=== PATIENT | female | born 1950 | race Caucasian/White ===

== ENCOUNTER 2019-02-17 22:15 | Observation (INO) ==
--- NOTE | 2019-02-17 22:55 | PROVIDER DOCUMENTATION ---
This chart was entered by Kim Mar Scribe, acting as scribe for Dara Martínez CRNP. HPI-General Adult - General Source: patient, family - History of Present Illness -Gen Adult Nature of Presenting Problems: 68 yof presents w/ at bedside w/cc generalized weakness. sts that pt at 0900 was not walking or talking as normal (has shuffling gait,) but was able to drive at 1500 and pulled over by pd for swerving. pt is talking normally at beside and denies any other complaints aside from weakness. denies falls and loc. pt mother felt back and pt felt feverish. pt has hx of htn, dm, bipolar. NO ONE IS THE ROOM SEEMS TO PROVIDE AN ACCURATE HX ON THE PATIENT. Location of Pain/Injury: reports: generalized (weakness) Pain Radiation: reports: no radiation Quality of Pain: reports: other (weak) Severity: reports: mild Onset/Duration: reports: this morning Timing: reports: improving (pt speaking normally), other (pt gait still off balance.) Modifying Factors: improves with: nothing <Dara Martínez - Last Filed: 02/17/19 23:36> <Niki Mcmanus - Last Filed: 02/18/19 00:58> - General Chief Complaint: Weakness Stated Complaint: CAN'T WALK/TALK, WEAK Time Seen by Provider: 02/17/19 22:27 Allergies/Adverse Reactions: Patient Allergies Allergy/AdvReac Type Severity Reaction Status Date / Time losartan Allergy Mild Unknown Verified 05/10/18 01:14 codeine Allergy NAUSEA/VOMI Verified 05/10/18 01:14 TING olanzapine [From Zyprexa] Allergy ANAPHYLAXIS Verified 05/10/18 01:14 Penicillins Allergy ANAPHYLAXIS Verified 05/10/18 01:14 quetiapine [From Seroquel] Allergy ANAPHYLAXIS Verified 05/10/18 01:14 prednisone AdvReac Mild Unknown Verified 05/10/18 01:14 dexamethasone [From Decadron] AdvReac Unknown Verified 05/10/18 01:14 Home Medications: Home Medication List Medication Instructions Recorded Confirmed Last Taken Type Metformin [Glucophage] 500 mg PO DAILY 04/15/12 05/10/18 04/12/18 21:30 History Estrogen Vag Cream [Premarin Vag 1 applic VAG DIRECTED 04/14/18 05/10/18 04/05/18 21:30 History Cream] Hydroxyzine [Atarax] 25 mg PO DAILY 04/14/18 05/10/18 04/12/18 21:30 History Pantoprazole [Protonix] 40 mg PO DAILY 04/14/18 05/10/18 04/12/18 21:30 History Psyllium [Metamucil Powder Packet] 1 each PO DAILY 04/14/18 05/10/18 04/13/18 09:00 History Trazodone [Desyrel] 50 mg PO QHS #30 tab 04/20/18 05/10/18 Unknown Rx Albuterol Sulfate [Proair Hfa] 8.5 gm IH Q4-6H PRN PRN #1 04/22/18 05/10/18 Unknown Rx [email or web address] Melatonin 15 mg PO QHS 05/04/18 05/10/18 Unknown History Sennosides/Docusate Sodium [Stool 1 each PO BID 05/04/18 05/10/18 Unknown History Softener-Laxative Tablet] Mirtazapine [Remeron] 7.5 mg PO QHS #90 tab 05/07/18 05/10/18 Unknown Rx Trazodone [Desyrel] 100 mg PO QHS #90 tab 05/07/18 05/10/18 Unknown Rx Review of Systems - Adult - REVIEW OF SYSTEMS - ADULT Constitutional: reports: no symptoms reported. denies: chills, fatique, night sweats Eyes: reports: no symptoms reported Ears, Nose, Mouth & Throat: reports: no symptoms reported Cardiovascular: reports: no symptoms reported Respiratory: reports: no symptoms reported Gastrointestinal: reports: no symptoms reported Genitourinary: reports: no symptoms reported Musculoskeletal: reports: see HPI, muscle weakness (generalized), other (unable to walk, unable to talk. pt is able to speak in er.). denies: bone pain, back pain, joint pain, joint swelling, muscle aches Integumentary: reports: no symptoms reported Neurological: reports: no symptoms reported. denies: dizziness/vertigo, headache/migraines, seizure, syncope, tremors Psychiatric: reports: no symptoms reported Endocrine: reports: no symptoms reported Hematologic/Lymphatic: reports: no symptoms reported Allergic/Immunologic: reports: no symptoms reported All Other Systems: Reviewed and Negative <Dara Martínez - Last Filed: 02/17/19 23:36> Past History - Adult - PAST MEDICAL HISTORY-ADULT Review of Records: reports: Old Records Reviewed, Nursing Assessment Review, Medications Reviewed, Social history reviewed & non-contributory. Major Childhood Illnesses: reports: denies history Cardiovascular: reports: HTN, hyperlipidemia Respiratory: reports: denies history Gastrointestinal: reports: denies history Obstetrical/Gynecological: reports: denies history Genitourinary: reports: denies history Musculoskeletal: reports: denies history Neurological: reports: CVA, TIA Psychiatric: reports: bipolar Endocrine/Immune: reports: Diabetes Other Conditions: reports: denies history - PRIOR SURGERIES/PROCEDURES Surgical/Procedure History: reports: appendectomy, hysterectomy, tonsillectomy, joint replacement - IMMUNIZATION STATUS Childhood Immunizations: See Nurse Assessment Flu Vaccine: See Nurse Assessment - FAMILY HISTORY Family History: reviewed, not pertinent - SOCIAL HISTORY Smoking: non-smoker Substance Use: none/never <Dara Martínez - Last Filed: 02/17/19 23:36> Physical Exam-General - PHYSICAL EXAM-ADULT Initial Vital Signs Reviewed: Yes - CONSTITUTIONAL General Appearance: appears well, alert, no apparent distress. negative: lethargic, slow to respond, obtunded - EYES Eyes: PERRL/EOMI, pink conjunctivae - HEAD, EARS, NOSE, MOUTH & THROAT HENMT: normocephalic/atraumatic, moist mucous membranes, normal ENT inspection - NECK Neck: non-tender, full range of motion, supple, normal inspection - RESPIRATORY Respiratory: chest non-tender, lungs clear, normal breath sounds - CARDIOVASCULAR Cardiovascular: normal peripheral pulses, regular rate, rhythm - GASTROINTESTINAL (ABDOMEN) Abdominal Exam: normal bowel sounds, non tender, soft - LYMPHATIC Lymphatic: no adenopathy - MUSCULOSKELETAL Back Exam: normal inspection, no CVA tenderness, no vertebral tenderness Extremity: normal range of motion, non-tender, normal capillary refill, other (bilat leg weakness). negative: normal gait (off balance), normal inspection, deformity, erythema, inflammation, slow capillary refill, swelling, tenderness - SKIN Integumentary: normal color, normal turgor, warm/dry - NEUROLOGIC Neurologic: equipment or machinery cleaner II-XII nml as tested, grossly normal, no motor/sensory deficits - PSYCHIATRIC Psych/Mental Status: normal mood/affect, normal thought content, normal thought process, oriented x 3 <Dara Martínez - Last Filed: 02/17/19 23:36> Progress - PLAN OF CARE/RESULTS Progress/Plan/Lab Results: Vital Signs - 8 hr 02/17/19 22:19 Temperature 98.6 F Pulse Rate 117 H Respiratory Rate 16 Blood Pressure 143/84 O2 Sat by Pulse Oximetry 95 Result Diagrams: 02/17/19 22:52 - CHANGE OF SHIFT REPORT (ED Provider) 1 Report Given and Care Transferred to:: DR. MCMANUS Items Pending: Labs, CT/MRI Results <Dara Martínez - Last Filed: 02/17/19 23:36> - PLAN OF CARE/RESULTS Progress/Plan/Lab Results: Vital Signs - 8 hr 02/17/19 22:19 02/17/19 23:57 Temperature 98.6 F Pulse Rate 117 H Pulse Rate [Sitting] 102 H Pulse Rate [Standing] 102 H Pulse Rate [Supine] 93 H Respiratory Rate 16 Blood Pressure 143/84 Blood Pressure [Sitting] 152/82 Blood Pressure [Standing] 152/82 Blood Pressure [Supine] 163/93 O2 Sat by Pulse Oximetry 95 Laboratory Results - last 24 hr 02/17/19 02/17/19 02/17/19 21:37 21:37 22:52 WBC RBC Hgb Hct MCV MCH MCHC RDW Std Deviation Plt Count MPV Immature Gran % (Auto) Neut % (Auto) Lymph % (Auto) [place] % (Auto) Eos % (Auto) Baso % (Auto) Immature Gran # (Auto) Neut # (Auto) Lymph # (Auto) [place] # (Auto) Eos # (Auto) Baso # (Auto) PT 13.6 INR 1.03 PTT (Actin FS) 29.1 Sodium Potassium Chloride Carbon Dioxide Anion Gap BUN Creatinine Estimated GFR/1.73 m2 BUN/Creatinine Ratio Glucose POC Glucose Calculated Osmolality Calcium Total Bilirubin AST ALT Alkaline Phosphatase Creatine Kinase Troponin T Total Protein Albumin Globulin Albumin/Globulin Ratio Urine Source CATH Urine Color YELLOW Urine Turbidity CLEAR Urine pH 7.0 Ur Specific [place] 1.013 Urine Protein NEGATIVE Ur Glucose (Stick) NEGATIVE Ur Ketones (Stick) TRACE A Urine Blood NEGATIVE Urine Nitrite NEGATIVE Urine Bilirubin NEGATIVE Urobilinogen Dipstick 3 A Urine Leukocytes NEGATIVE Urine WBC (Auto) <10 Urine RBC (Auto) <10 U Epithel Cells (Auto) <10 Urine Bacteria (Auto) NEGATIVE Urine Opiates Screen NONE DETECTED Ur Oxycodone Screen NONE DETECTED Ur Methadone, Qual NONE DETECTED Ur Barbiturates Screen NONE DETECTED Ur Phencyclidine Scrn NONE DETECTED Ur Amphetamines Screen NONE DETECTED U Benzodiazepines Scrn NONE DETECTED Urine Cocaine Screen NONE DETECTED U Cannabinoids Screen NONE DETECTED 02/17/19 02/17/19 02/17/19 22:52 22:52 22:52 WBC 5.86 RBC 3.37 L Hgb 10.9 L Hct 32.6 L MCV 96.7 MCH 32.3 H MCHC 33.4 RDW Std Deviation 12.8 Plt Count 79 L MPV 9.5 Immature Gran % (Auto) 0.0 Neut % (Auto) 56.3 Lymph % (Auto) 25.9 [place] % (Auto) 17.4 H Eos % (Auto) 0.2 Baso % (Auto) 0.2 Immature Gran # (Auto) 0.00 Neut # (Auto) 3.30 Lymph # (Auto) 1.52 [place] # (Auto) 1.02 H Eos # (Auto) 0.01 Baso # (Auto) 0.01 PT INR PTT (Actin FS) Sodium Potassium Chloride Carbon Dioxide Anion Gap BUN Creatinine Estimated GFR/1.73 m2 BUN/Creatinine Ratio Glucose POC Glucose Calculated Osmolality Calcium Total Bilirubin AST ALT Alkaline Phosphatase Creatine Kinase 31 Troponin T < 0.010 Total Protein Albumin Globulin Albumin/Globulin Ratio Urine Source Urine Color Urine Turbidity Urine pH Ur Specific [place] Urine Protein Ur Glucose (Stick) Ur Ketones (Stick) Urine Blood Urine Nitrite Urine Bilirubin Urobilinogen Dipstick Urine Leukocytes Urine WBC (Auto) Urine RBC (Auto) U Epithel Cells (Auto) Urine Bacteria (Auto) Urine Opiates Screen Ur Oxycodone Screen Ur Methadone, Qual Ur Barbiturates Screen Ur Phencyclidine Scrn Ur Amphetamines Screen U Benzodiazepines Scrn Urine Cocaine Screen U Cannabinoids Screen 02/17/19 02/17/19 22:52 23:19 WBC RBC Hgb Hct MCV MCH MCHC RDW Std Deviation Plt Count MPV Immature Gran % (Auto) Neut % (Auto) Lymph % (Auto) [place] % (Auto) Eos % (Auto) Baso % (Auto) Immature Gran # (Auto) Neut # (Auto) Lymph # (Auto) [place] # (Auto) Eos # (Auto) Baso # (Auto) PT INR PTT (Actin FS) Sodium 139 Potassium 4.5 Chloride 101 Carbon Dioxide 25 Anion Gap 13 BUN 26 H Creatinine 1.4 H Estimated GFR/1.73 m2 38 BUN/Creatinine Ratio 19 Glucose 110 H POC Glucose 100 Calculated Osmolality 283 Calcium 8.5 L Total Bilirubin 0.76 AST 21 ALT 6 L Alkaline Phosphatase 62 Creatine Kinase Troponin T Total Protein 6.3 Albumin 3.6 Globulin 2.7 Albumin/Globulin Ratio 1.3 Urine Source Urine Color Urine Turbidity Urine pH Ur Specific [place] Urine Protein Ur Glucose (Stick) Ur Ketones (Stick) Urine Blood Urine Nitrite Urine Bilirubin Urobilinogen Dipstick Urine Leukocytes Urine WBC (Auto) Urine RBC (Auto) U Epithel Cells (Auto) Urine Bacteria (Auto) Urine Opiates Screen Ur Oxycodone Screen Ur Methadone, Qual Ur Barbiturates Screen Ur Phencyclidine Scrn Ur Amphetamines Screen U Benzodiazepines Scrn Urine Cocaine Screen U Cannabinoids Screen Orders Category Date Time Status FSBS [Finger Stick Blood Sugar (ED)] DIRECTED Care 02/17/19 22:35 Active Orthostatic Vital Signs NOW Care 02/17/19 22:35 Active Saline Loc NOW Care 02/17/19 22:35 Active CHEST-PORTABLE [RAD] Stat Exams 02/17/19 23:[address] HEAD W/O CONTRAST [CT] Stat Exams 02/17/19 22:36 Taken CBC WITH ELECTRONIC DIFF [HEME] Stat Lab 02/17/19 22:52 Completed CK PROFILE [SP CHEM] Stat Lab 02/17/19 22:52 Completed CMP [COMPREHENSIVE METABOLIC PANEL] [CHEM] Stat Lab 02/17/19 22:52 Completed PROTIME WITH INR [COAG] Stat Lab 02/17/19 22:52 Completed PTT [COAG] Stat Lab 02/17/19 22:52 Completed TROPONIN T Stat Lab 02/17/19 22:52 Completed UA NIMS W/REFLEX CULT [URINALYSIS] Stat Lab 02/17/19 21:37 Completed URINE DRUG SCREEN Stat Lab 02/17/19 21:37 Completed EKG [EKG] Stat Ther 02/17/19 22:35 Ordered Result Diagrams: 02/17/19 22:52 02/17/19 22:52 - REASSESSMENT Reassessment #1 Status: improving (Pt signed out to me by Ольга Martínez MINIATURE SET CONSTRUCTOR pending labs and CT results. Labs and CT unremarkable. As unable to ambulate due to weakness will admit for further evaluation and treatment. Discussed case with Dr. Andersen, hospitalist, who will see and admit pt.) - CT/MRI 1 CT Study: Head Impression: Normal (Per radiologist read: "no acute intracranial disease") <Niki Mcmanus - Last Filed: 02/18/19 00:58> Departure <Dara Martínez - Last Filed: 02/17/19 23:36> - Departure Date of Disposition Decision: 02/18/19 Time of Disposition Decision: 00:57 Certified Medical Emergency: Emergent - Critical Care Note This patient required my direct & personal management of CC.: No <Niki Mcmanus - Last Filed: 02/18/19 00:58> - Departure DIAGNOSIS: Weakness Disposition: ADMITTED INPATIENT 09 Condition: Fair Attestation - Physician/ CHACORTA Attestation Patient care was provided by Advanced Practice Provider:: Yes Advanced Practice Provider:: Dara Martínez Advanced Practice Provider documentation review:: The Mid-level provider documentation, treatment plan and medical decision making was reviewed by the physician who agrees with all treatment and medical decision making by the P. The physician spent face to face time with patient:: No Advanced Practice Provider documentation review:: Supervising physician onsite and consulted in the evaluation and care of this patient. The physician did not have a face to face encounter with the patient. <Dara Martínez - Last Filed: 02/17/19 23:36> This chart was documented by the indicated scribe, (Kim Mar Scribe) and accurately reflects the services I performed and decisions made by me, Dara Martínez CRNP, as attested by the provider's signature.
[2019-02-17 23:17] LABS: BASO# 0.01 X1000 (0.0-0.2); BASO% 0.2 % (0.0-0.8); EOS# 0.01 X1000 (0.0-0.7); EOS% 0.2 % (0.0-10.0); HEMATOCRIT 32.6 % (37.0-47.0); HEMOGLOBIN 10.9 g/dL (12.0-16.0); LYMPH# 1.52 X1000 (1.2-3.4); LYMPH% 25.9 % (20.5-51.1); MCH 32.3 PG (27-31); MCHC 33.4 g/dL (33-37); MCV 96.7 FL (81-99); MONO# 1.02 X1000 (0.11-0.59); MONO% 17.4 % (1.7-9.3); MPV 9.5 FL (7.4-10.4); NEUT% 56.3 % (42.2-75.2); PLT 79 X1000 (130-400); RBC 3.37 XMIL (4.2-5.4); RDW 12.8 % (11.5-14.5); WBC 5.86 X1000 (4.8-10.8)
[2019-02-17 23:27] LABS: URINE SOURCE CATH
[2019-02-17 23:27] LABS: INR 1.03; PROTIME 13.6 Seconds (11.0-16.0)
[2019-02-17 23:28] LABS: PTT 29.1 Seconds (22.3-41.8)
[2019-02-17 23:31] LABS: BILIRUBIN URINE NEGATIVE (NEGATIVE); BLOOD URINE NEGATIVE (NEGATIVE); COLOR YELLOW; GLUCOSE URINE NEGATIVE (NEGATIVE); KETONE URINE TRACE mg/dL (NEGATIVE); LEUKOCYTES URINE NEGATIVE (NEGATIVE); NITRITE URINE NEGATIVE (NEGATIVE); PROTEIN URINE NEGATIVE (NEGATIVE); SP GRAVITY URINE 1.013; TURBIDITY URINE CLEAR (CLEAR); UR EPITHELIAL CELLS <10 /HPF (<10); URINE BACTERIA NEGATIVE /HPF; URINE RBC <10 /HPF (<10); URINE WBC <10 /HPF (<10); UROBILINOGEN URINE 3 mg/dL (NORMAL)
[2019-02-18 00:24] LABS: ALB/GLOB RATIO 1.3; ALBUMIN 3.6 g/dL (3.5-5.0); CALCIUM 8.5 mg/dL (8.8-10.2); CREATININE 1.4 mg/dL (0.5-0.9); POTASSIUM 4.5 mmol/L (3.5-5.1); TOTAL BILIRUBIN 0.76 mg/dL (0.20-1.00); TOTAL PROTEIN 6.3 g/dL (6.3-8.3)
[2019-02-18 00:43] LABS: UR AMPHETAMINES QUAL NONE DETECTED (NONE DETECT); UR BARBITUATES QUAL NONE DETECTED (NONE DETECT); UR BENZODIAZEPIN QUAL NONE DETECTED (NONE DETECT); UR CANNABINOIDS QUAL NONE DETECTED (NONE DETECT); UR COCAINE QUAL NONE DETECTED (NONE DETECT); UR METHADONE QUAL NONE DETECTED (NONE DETECT); UR OPIATES QUAL NONE DETECTED (NONE DETECT); UR OXYCODONE QUAL NONE DETECTED (NONE DETECT); UR PCP QUAL NONE DETECTED (NONE DETECT)
[2019-02-18 02:08] LABS: MAGNESIUM 1.7 mg/dL (1.5-2.7)
[2019-02-18 02:30] LABS: TSH 2.49 uIUmL (0.27-4.20)
--- NOTE | 2019-02-18 02:59 | HISTORY AND PHYSICAL ---
PRIMARY CARE PHYSICIAN: Dr. Cheung. REASON FOR ADMISSION: Worsening generalized weakness and cognitive dysfunction over the last 1 month. HISTORY OF PRESENT ILLNESS: Ms. Anabell Kunz is a 68-year-old woman with past medical history of mood disorder, unspecified, type 2 diabetes, hypertension, prior CVA, and history of angioedema secondary ARB's. She comes in today because her says that she has become very unstable on her feet, and over the course of the last 2 days had to be close by her side to make sure she does not fall and hurt herself. Today, she was stopped by the police department because she was driving off the road. Apparently, her spouse says that her memory, both short-term and long-term have been failing her. The patient is not a very good historian, and she seems to have some mild degree of speech apraxia. History was obtained primarily from the spouse and the mother, who are both at bedside. The patient denies any pain, any shortness of breath, except for pain in the suprapubic area. No diarrhea, nausea, vomiting, no bleeding from any orifice. No focal weakness, numbness, tingling, or headaches. No visual disturbances. No cardiorespiratory complaints. REVIEW OF SYSTEMS: Limited due to patient's poor cognitive function. ALLERGIES: She is allergic to ARB's, codeine, penicillin, atypical antipsychotics, Decadron, prednisone, Trileptal. FAMILY HISTORY: No obtained, but the mother did say nobody has had prior neurological problems. PAST SURGICAL HISTORY: Hysterectomy, tonsillectomy, joint replacement, right total knee replacement, left knee arthroscopic surgery. SOCIAL HISTORY: . Does not smoke, drink, or use drugs. Sister did have bipolar disorder. LABORATORY DATA: White count 5000, hemoglobin and hematocrit 10 and 32, platelets 79,000. Normal differential. BUN is 26, creatinine 1.4. Glucose 110, calcium 8.5, albumin 2.6. Troponin is negative, CK is normal. UDS is negative. Urinalysis clean. Chest film and head CT, no gross acute processes noted. PHYSICAL EXAMINATION: VITAL SIGNS: Blood pressure 142/84, heart rate 117, respirations 16, temperature is 98.6 degrees, saturation 95% on room air. No evidence of orthostatic changes noted. GENERAL: She is an elderly woman who is alert and oriented only to person. She has a flat affect and somewhat apathetic mood. HEENT: Head is normocephalic, atraumatic. Eyes, only movement in the horizontal plane. I do not see any upward or downward movements. No nystagmus. Pale conjunctivae. Oral cavity with no exudates or erythema. No central cyanosis. There is a mild mouth tremor noted. Myerson sinus is equivocal. NECK: Supple. No JVD or carotid bruit. No thyromegaly. CHEST: Clear to auscultation. Good breath lung kim. CARDIOVASCULAR: First and sounds heard. No gallops, murmurs, rubs. Rhythm is regular. ABDOMEN: Full, soft, with mild tenderness. No rebound or guarding. Bowel sounds normal. RECTAL: Deferred at this time. EXTREMITIES: Good distal pulse volumes, regular, symmetrical. No edema, clubbing, or cyanosis. NEUROLOGICAL: No gross focal deficits. No asterixis or tremors. SKIN: Intact. Good turgor. There is no breakdown, lesion, or erythema. MUSCULOSKELETAL: Patient has mild hypertonicity of extremities. IMPRESSION: 1. Acute kidney injury. Probably secondary to poor oral intake. 2. Hypertension. 3. 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 Supranuclear palsy, cannot rule out a neuromuscular condition, ? Myasthenia. 4. Anemia of chronic inflammation. 5. Type 2 diabetes. 6. Prior cerebrovascular accident. 7. Mood disorder, not otherwise specified. PLAN: Patient will be hydrated. MRI of the brain will be done to rule out alternative diagnosis from a possible Parkinson plus syndrome, and to rule out a possible recurrent cerebrovascular accident. Consult Neurology to see patient. We will avoid using any possible atypical or typical neurolytic agent in light of her symptoms. Check BMP in the morning. Anemia workup was ordered, and also extensive nutritional/trace element workup was also ordered. The patient is apparently very weak, recommend physical therapy. Possible placement due to fall risk of this patient. cc: MD Dr. Jonatan Vogel
[2019-02-18] MEDS ORDERED: NS 1,000 ML IV SCH (03:33)
[2019-02-18] MEDS ORDERED: TYLENOL PO PRN (03:33)
[2019-02-18] MEDS ORDERED: ZOFRAN IV PRN (03:33)
--- NOTE | 2019-02-18 04:32 | EKG Report ---
Test Performed on : 02/17/2019 11:29:47 PM Test Reason : WEAKNESS Blood Pressure : / mmHG Vent. Rate : 098 BPM Atrial Rate : 098 BPM P-R Int : 166 ms QRS Dur : 110 ms QT Int : 382 ms P-R-T Axes : 056 -34 068 degrees QTc Int : 487 ms Sinus rhythm. with marked sinus arrhythmia. with frequent ventricular-paced complexes and with occasi onal premature ventricular complexes. Left axis deviation Low voltage QRS Incomplete right bundle branch block Nonspecific ST and T wave abnormality Abnormal ECG When compared with ECG of 10-MAY-2018 04:26, Electronic ventricular pacemaker has replaced Sinus rhythm. Unconfirmed Result
[2019-02-18] MEDS: LOVENOX SUBQ SCH (04:33)
[2019-02-18] MEDS: HUMALOG SUBQ SCH ×4 (07:04→20:51)
--- NOTE | 2019-02-18 09:07 | Diag Imaging Result Doc PS360 ---
EXAM: CHEST-PORTABLE INDICATION: weakness TECHNIQUE: One view COMPARISON: 05/10/2018 FINDINGS: Inspiration is suboptimal. The lungs are grossly clear. There is no discrete pleural fluid collection or pneumothorax. The cardiomediastinal silhouette and central vasculature are grossly unremarkable. IMPRESSION: Somewhat low lung volumes but no definite acute pathology, otherwise. Electronically signed by Ruddy Mar 02/18/2019 9:05 AM
[2019-02-18] MEDS ORDERED: VITAMIN D PO SCH (10:00)
--- NOTE | 2019-02-18 10:20 | Diag Imaging Result Doc PS360 ---
EXAM: CT HEAD W/O CONTRAST INDICATION: AMS TECHNIQUE: This exam was performed using automated exposure control, adjustment of mA or kV according to patient size, and/or use of iterative reconstruction technique. COMPARISON: 04/14/2018 FINDINGS: There is no definite acute infarct given the limited sensitivity of CT versus MRI. There is no discrete intracranial mass, mass effect, or intracranial hemorrhage. The surrounding soft tissues and bony structures are essentially unremarkable. IMPRESSION: No evidence of acute intracranial pathology. Electronically signed by Ruddy Mar 02/18/2019 10:18 AM
--- NOTE | 2019-02-18 10:28 | PROGRESS NOTE ---
DATE: 02/18/2019 SUBJECTIVE: Patient admitted during the night last night to Dr. Cheung. She has had ataxia and generalized weakness, cognitive dysfunction over the last month. This morning she is alert and she is slow of speech, but is coherent and answers questions appropriately. Moves all extremities well. OBJECTIVE: Afebrile. Pulse 88, respirations 16, blood pressure 154/73, O2 saturation room air 98%.CV: RRR without murmur. Lungs: Clear. Abdomen: Soft, nontender, nondistended. No mass. No hepatosplenomegaly. Extremities: No calf tenderness, cords or edema. Neurologic: Nonfocal. She moves all extremities well. Slow of speech. Flat affect noted. LABORATORY DATA: Reviewed from admission mainly showing a slightly low hemoglobin 10.9, BUN and creatinine were abnormal at 26 and 1.4. Urine drug screen negative. ASSESSMENT: 1. Mental status change with slowness of speech and some ataxia. 2. History of bipolar disorder, on chronic Depakote. 3. Prior history of cerebrovascular accident. 4. Type 2 diabetes mellitus. 5. Hypertension. 6. Hypercholesterolemia. 7. Anemia of chronic disease. 8. Mild prerenal azotemia. PLAN: 1. Continue low-dose IV fluids. 2. MRI of brain has been ordered by the hospitalist. By report CT of the head was unremarkable. 3. We will check a valproic acid level as we were concerned she could have Depakote toxicity. 4. Will follow up her CBC and CMP in the morning. 5. She ate fairly well this morning. We will give her sliding scale insulin with serial Accu- Cheks as required. 6. Resume most for home medications except will hold Remeron currently. 7. Several vitamin levels have been obtained. We will follow those up as well when they come back. Keep her at bedrest except up with assistance only. cc: MD Dru Trna MD
[2019-02-18] MEDS: NS 1,000 ML IV SCH ×2 (12:12→21:16)
[2019-02-18] MEDS: BUSPAR PO SCH (20:49)
[2019-02-18] MEDS: NEURONTIN PO SCH (20:49)
[2019-02-19] MEDS: LOVENOX SUBQ SCH (02:34)
[2019-02-19] MEDS: NS 1,000 ML IV SCH ×2 (06:28→17:26)
[2019-02-19] MEDS: HUMALOG SUBQ SCH ×4 (06:29→21:08)
[2019-02-19] MEDS: BUSPAR PO SCH ×2 (08:12→21:06)
[2019-02-19] MEDS: CLARITIN PO SCH (08:12)
[2019-02-19 08:19] LABS: BASO# 0.01 X1000 (0.0-0.2); BASO% 0.2 % (0.0-0.8); EOS# 0.03 X1000 (0.0-0.7); EOS% 0.6 % (0.0-10.0); HEMATOCRIT 30.3 % (37.0-47.0); HEMOGLOBIN 9.9 g/dL (12.0-16.0); LYMPH# 1.96 X1000 (1.2-3.4); LYMPH% 41.5 % (20.5-51.1); MCH 31.5 PG (27-31); MCHC 32.7 g/dL (33-37); MCV 96.5 FL (81-99); MONO# 0.62 X1000 (0.11-0.59); MONO% 13.1 % (1.7-9.3); MPV 9.2 FL (7.4-10.4); NEUT% 44.6 % (42.2-75.2); PLT 89 X1000 (130-400); RBC 3.14 XMIL (4.2-5.4); RDW 12.5 % (11.5-14.5); WBC 4.72 X1000 (4.8-10.8)
[2019-02-19 08:34] LABS: CALCIUM 8.1 mg/dL (8.8-10.2); CREATININE 1.1 mg/dL (0.5-0.9); POTASSIUM 3.8 mmol/L (3.5-5.1)
[2019-02-19] MEDS: DEPAKOTE ER PO SCH (08:47)
[2019-02-19] MEDS: ATIVAN PO SCH (10:28)
--- NOTE | 2019-02-19 12:59 | Diag Imaging Result Doc PS360 ---
EXAM: MRI BRAIN W/WO CONTRAST 02/18/2019 HISTORY: neurodegenerative disease TECHNIQUE: T1 sagittal, axial and post gadolinium-enhanced axial with coronal reformation, axial T2, FLAIR, DWI and coronal gradient echo. COMMENT: There is mild generalized cerebral atrophy. There is no evidence of mass effect, bleed, or abnormal extra-axial fluid collection. There is no evidence of restricted diffusion. There is no evidence of abnormal gadolinium enhancement. No previous MRI studies are available for comparison. IMPRESSION: No evidence of acute intracranial disease. Electronically signed by Barney Lezama 02/19/2019 12:57 PM
[2019-02-19] MEDS: NEURONTIN PO SCH (21:06)
[2019-02-20] MEDS: NS 1,000 ML IV SCH (01:38)
[2019-02-20] MEDS: LOVENOX SUBQ SCH (03:19)
[2019-02-20] MEDS: HUMALOG SUBQ SCH (06:01)
--- NOTE | 2019-02-20 07:26 | PROGRESS NOTE ---
DATE: 02/19/2019 SUBJECTIVE: A 68-year-old, white female who was admitted to the hospital on 02/17/2019 with worsening of generalized weakness, cognitive dysfunction over the last 1 month. Patient has a history of depression, under the care of a psychiatrist. The interval history was reviewed. PAST MEDICAL HISTORY: Reviewed. PAST SURGICAL HISTORY: Reviewed. MEDICINES: Reviewed. ALLERGIES: Reviewed. Today, the patient is doing much better as per the . Going for MRI. PHYSICAL EXAMINATION: Temperature is 98 degrees, pulse 63. Vitals are stable. HEENT Examination: Within normal limits. Neck is supple. Chest is clear. Heart sounds are regular. Belly is soft and nontender. No obvious deficits. INVESTIGATIONS: White cell count 4.7, hematocrit 30, platelets 89,000. Sodium 143, potassium 3.8, chloride 110, BUN 21, creatinine 1.1, glucose 219. Urinalysis is clear. Valproic acid 59. CT of head was negative. Brain MRI, no evidence of acute intracranial disease. EKG, normal sinus and incomplete right bundle. ASSESSMENT AND PLAN: 1. Altered mental status, is getting better. No neurological deficits. 2. Thrombocytopenia, probably drug-induced. Depakote levels were normal. 3. Extremely fatigued and weakness. Follow up on B1, B2, aldolase, B6, and acetylcholine receptor antibody. 4. Deep venous thrombosis prophylaxis with Lovenox. 5. Depression, bipolar, on Depakote and BuSpar. 6. Chronic neuropathy pain, on Neurontin. 7. Vitamin D deficiency, on replacement therapy and intravenous fluids. 8. Hyperlipidemia, on Lipitor, was on hold. 9. Chronic insomnia, on melatonin. 10. Type 2 diabetes, on metformin. Dr. Flores held the risperidone. is better. We will check the labs in the morning and follow up on the pending results. 11. Out of the bed with physical therapy. LEVEL OF DOCUMENTATION: 35 minutes. cc: Dru Cheung MD MTDD
[2019-02-20 08:01] VITALS: BP 143/67
[2019-02-20 08:11] LABS: BASO# 0.02 X1000 (0.0-0.2); BASO% 0.4 % (0.0-0.8); EOS# 0.09 X1000 (0.0-0.7); EOS% 1.6 % (0.0-10.0); HEMATOCRIT 29.9 % (37.0-47.0); HEMOGLOBIN 9.8 g/dL (12.0-16.0); LYMPH% 36.4 % (20.5-51.1); MCH 31.6 PG (27-31); MCHC 32.8 g/dL (33-37); MCV 96.5 FL (81-99); MONO# 0.75 X1000 (0.11-0.59); MONO% 13.7 % (1.7-9.3); MPV 9.4 FL (7.4-10.4); NEUT# 2.63 X1000 (1.4-6.5); NEUT% 47.9 % (42.2-75.2); PLT 100 X1000 (130-400); RDW 12.4 % (11.5-14.5); WBC 5.49 X1000 (4.8-10.8)
[2019-02-20 08:26] LABS: HEMOGLOBIN A1C 4.9 % (4.8-6.0)
[2019-02-20 08:54] LABS: ALB/GLOB RATIO 1.3; C REACTIVE PROT QUANT 43.74 mg/L (0.00-5.00); CALCIUM 8.2 mg/dL (8.8-10.2); POTASSIUM 4.2 mmol/L (3.5-5.1); TOTAL BILIRUBIN 0.4 mg/dL (0.20-1.00); TOTAL PROTEIN 5.3 g/dL (6.3-8.3)
[2019-02-20] MEDS: BUSPAR PO SCH (09:22)
[2019-02-20] MEDS: ATIVAN PO SCH (09:22)
[2019-02-20] MEDS: CLARITIN PO SCH (09:22)
[2019-02-20] MEDS: DEPAKOTE ER PO SCH (09:23)
--- NOTE | 2019-02-21 21:14 | DISCHARGE SUMMARY ---
ADMISSION DATE: 02/17/2019 DISCHARGE DATE: 02/20/2019 DISCHARGING DIAGNOSES: 1. Altered mental status with underlying bipolar disorder, probably delirium from medication effect. 2. Thrombocytopenia, probably from valproic acid. 3. Chronic obstructive pulmonary disease. 4. History of angioedema, due to Trileptal and angiotensin converting enzyme inhibitors. 5. Sinus bradycardia, due to Bystolic. 6. Bipolar disorder. 7. Hypertension. 8. Type 2 diabetes. BRIEF HISTORY: Please see the H and P that was done by hospitalist. In brief, she is a 68-year- old white female with history of depression, bipolar, under the care of psychiatrist, undergoing ECT treatment, with multiple medications, came in with altered mental status, confusion, delirium, generalized weakness. The patient was admitted by hospitalist and Dr. Flores stopped the Risperdal. Further workup. Patient came back to the baseline. No evidence of stroke. Previous workup was unremarkable. LABS: CBC: White cell count 5.4, hematocrit 29.9, platelets 100,000. ESR 19. Sodium 144, potassium 4.2, BUN 22, creatinine 1.0, glucose 132, A1c 4.9. Liver function tests were normal. CRP slightly elevated. Aldolase is normal. Vitamin B12, folate, TSH are normal. Urine toxicology is negative. The patient was slightly azotemic. Given IV fluids, followup hydration. Creatinine came back to normal. Patient exhibiting thrombocytopenia, probably drug-induced. I am going to monitor it. MRI of the brain is no evidence of acute intracranial disease. DISCHARGING INSTRUCTIONS: 1. Metformin 500 daily. 2. Protonix 40 daily. 3. Melatonin 50 at bedtime. 4. Lipitor 10 daily. 5. Gabapentin 600 daily. 6. We will hold the Risperdal. 7. BuSpar 15 p.o. b.i.d. 8. Depakote 500 3 tablets daily. 9. Vitamin D 50,000 once a week. 10. Loratadine 10 daily. 11. Patient cannot take any blood pressure medicine, which includes Bystolic and angiotensin converting enzyme inhibitors, angiotensin receptor blockers. 12. Will monitor thrombocytopenia. Patient also has thiamine, B6, and ACH receptor antibodies done by the hospitalist. We will follow up on pending labs. 13. Follow up in my office next week, as well as her psychiatrist. cc: Dru Cheung MD [facility]
== END 2019-02-20 12:39 | disposition home or self-care (01) ==
LOC: ED 22:15 → INTOOBSV 22:16 → SUATTDRO 02-18 03:14 → 3N 02-18 03:14
PROVIDERS: ADMIT Internal Medicine; ATTEND Internal Medicine